=== PATIENT | female | born 1995 | race African-American/Black ===

== ENCOUNTER 2016-11-01 10:58 | Emergency (ER) | payer MEDICAID ==
[~2016-11-01] VITALS: Ht 160 cm; Wt 73.7 kg
[2016-11-01 10:59] VITALS: BP 127/83
[2016-11-01] MEDS ORDERED: HYDROmorphone 1 MG/ML, 1ML ONE (11:21)
[2016-11-01] MEDS ORDERED: ONDANSETRON ODT 4 MG ONE (11:21)
[2016-11-01] MEDS ORDERED: ONDANSETRON ODT 4 MG PO ONE (11:30)
[2016-11-01] MEDS ORDERED: HYDROmorphone 1 MG/ML, 1ML IM ONE (11:30)
== END 2016-11-01 12:44 | disposition home or self-care (01) ==
LOC: ED 11:43
DX: K60.0 Acute anal fissure (principal); K59.00 Constipation, unspecified; J45.909 Unspecified asthma, uncomplicated; F17.210 Nicotine dependence, cigarettes, uncomplicated
CPT/HCPCS: 36415; 74000; 84703; 85025; 96372; 99285; J1170; Q0162

== ENCOUNTER 2018-06-09 09:11 | Day surgery (SDC) | payer MEDICAID ==
[~2018-06-09] VITALS: Ht 160 cm; Wt 56.2 kg
[2018-06-09] MEDS ORDERED: ALBU1.25 NEB (10:03)
[2018-06-09 10:05] VITALS: BP 101/73
[2018-06-09] MEDS ORDERED: ACETAMINOPHEN 500 MG TABLET PO ONE (10:30)
[2018-06-09] MEDS ORDERED: GABAPENTIN 300 MG CAPSULE PO ONE (10:30)
[2018-06-09] MEDS ORDERED: LACTATED RINGERS 1,000 ML IV SCH (11:00)
[2018-06-09] MEDS ORDERED: BUPIVACAINE/PF-EPI 0.5% 1:200K ONE (12:21)
[2018-06-09] MEDS ORDERED: SILVER NITRATE STICK TP ONE (12:21)
[2018-06-09] MEDS ORDERED: FENTANYL PF 250 MCG/5ML ONE (12:26)
[2018-06-09] MEDS ORDERED: GLYCOPYRROLATE 0.2MG/1ML, 5ML ONE ×2 (12:29→13:03)
[2018-06-09] MEDS ORDERED: CEFAZOLIN 1,000 MG ONE ×2 (12:29→13:03)
[2018-06-09] MEDS ORDERED: DEXAMETHASONE 4 MG/ML, 1ML ONE (12:29)
[2018-06-09] MEDS ORDERED: NEOSTIGMINE 1 MG/ML, 10ML ONE ×2 (12:29→13:03)
[2018-06-09] MEDS ORDERED: ROCURONIUM 10 MG/ML,10ML ONE (12:29)
[2018-06-09] MEDS ORDERED: ONDANSETRON 2MG/ML, 2ML ONE ×2 (12:29→13:03)
[2018-06-09] MEDS ORDERED: PROPOFOL 10 MG/ML, 20ML ONE ×2 (12:29→13:03)
[2018-06-09] MEDS ORDERED: KETOROLAC 30 MG/1 ML ONE (12:29)
[2018-06-09] MEDS ORDERED: SUCCINYLCHOLINE 20 MG/ML, 10ML ONE ×2 (12:29→13:03)
[2018-06-09] MEDS ORDERED: LABETALOL 5MG/ML, 20ML IV PRN (12:30)
[2018-06-09] MEDS ORDERED: METOPROLOL 1 MG/ML, 5ML IV PRN (12:30)
[2018-06-09] MEDS ORDERED: PROCHLORPERAZINE 5 MG/ML, 2ML IV PRN (12:30)
[2018-06-09] MEDS ORDERED: HALOPERIDOL 5 MG/ML IV PRN (12:30)
[2018-06-09] MEDS ORDERED: FENTANYL PF 100 MCG/2ML IV PRN (12:30)
[2018-06-09] MEDS ORDERED: PROMETHAZINE 25 MG/ML, 1ML IV PRN (12:30)
[2018-06-09] MEDS ORDERED: DIPHENHYDRAMINE 50 MG/ML, 1ML IVPush PRN (12:30)
[2018-06-09] MEDS ORDERED: hydrALAzine 20 MG/ML, 1ML IV PRN (12:30)
[2018-06-09] MEDS ORDERED: HYDROmorphone 2 MG/ML, 1ML IVPush PRN (12:30)
[2018-06-09] MEDS ORDERED: OXYcodone 5 MG/5 ML ORAL.SOL UDC PO PRN (12:30)
[2018-06-09] MEDS ORDERED: MEPERIDINE/PF 25MG/0.5ML IVPush PRN (12:30)
[2018-06-09] MEDS ORDERED: ROCURONIUM 10MG/ML,5ML ONE (13:03)
[2018-06-09] MEDS ORDERED: OXYcodone 5 MG/5 ML ORAL.SOL UDC ONE (13:31)
[2018-06-09] MEDS ORDERED: MEPERIDINE/PF 25MG/ML,1ML ONE (13:31)
[2018-06-09] MEDS ORDERED: FENTANYL PF 100 MCG/2ML ONE (13:44)
[2018-06-09] MEDS ORDERED: ONDANSETRON 2MG/ML, 2ML IVPush PRN (14:30)
== END 2018-06-09 16:25 | disposition home or self-care (01) ==
LOC: OUT 09:11
PROVIDERS: ATTEND Specialist
DX: N94.6 Dysmenorrhea, unspecified (principal); N94.10 Unspecified dyspareunia; N80.3 Endometriosis of pelvic peritoneum
CPT/HCPCS: 58662; 81025; J0330; J0690; J1100; J1885; J2175; J2405; J2704; J2710; J3010; J3490; J7120